=== PATIENT | male | born 1945 | race Caucasian/White ===

== ENCOUNTER 2024-01-15 06:16 | Day surgery (SDC) | payer MEDICARE, OTHER, SELFPAY ==
[2024-01-04 13:29] VITALS: BMI 31.7
[2024-01-15] VITALS (8 sets, daily range): BP systolic 118–146; BP diastolic 60–73; BMI 31.7
[2024-01-15] MEDS: NORMOSOL-R 1000 IV (08:03)
[2024-01-15] MEDS: TYLENOL 1000 MG PO (08:03)
== END 2024-01-15 14:09 | disposition home or self-care (01) ==
LOC: SDS 06:16
PROVIDERS: ATTENDING PHYSICIAN Surgery; FAMILY PHYSICIAN Family Medicine
DX: K40.21 Bilateral inguinal hernia, without obstruction or gangrene, recurrent (principal)
CPT/HCPCS: 49520; C1781

== ENCOUNTER → 2024-04-04 09:15 | Outpatient (REF) | payer MEDICARE, OTHER, SELFPAY ==
[2024-04-04 09:59] LABS: % Basophils 1.4 % (0-2); % Eosinophils 3.9 % (0-6); % Lymphocytes 38.5 % (20.5-51.1); % Monocytes 12.8 % (1.7-9.3); % Neutrophils 43.4 % (42.2-75.2); Absolute Basophils 0.1 10^3/uL (0-0.2); Absolute Eosinophils 0.1 10^3/uL (0-0.7); Absolute Lymphocytes 1.4 10^3/uL (1.2-3.4); Absolute Monocytes 0.5 10^3/uL (0.1-0.6); Absolute Neutrophils 1.6 10^3/uL (1.4-6.5); Hematocrit 39.3 % (39.0-52.0); Hemoglobin 13.3 g/dL (13.0-18.0); Mean Corp Hgb Conc. 33.8 g/dL (33.0-37.0); Mean Corpuscular Hgb 30.6 pg (27.0-31.0); Mean Corpuscular Volume 90.6 fL (80.0-94.0); Mean Platelet Volume 10.7 fL (7.4-10.4); Nucleated Red Blood Cells % 0 % (-); Platelet Count 205 10^3/uL (130-400); Red Blood Cell Count 4.34 10^6/uL (4.70-6.10); Red Cell Dist. Width 12.7 % (11.5-14.5); White Blood Cell Count 3.6 10^3/uL (4.8-10.8)
[2024-04-04 10:21] LABS: ALT (SGPT) 22 U/L (0-50); AST (SGOT) 25 U/L (17-59); Albumin 4.2 g/dl (3.5-5.0); Alkaline Phosphatase 64 U/L (38-126); Blood Urea Nitrogen 25 mg/dl (9-20); Calcium 9.4 mg/dl (8.4-10.2); Carbon Dioxide 26 mmol/L (22-30); Chloride 107 mmol/L (98-107); Glucose 98 mg/dl (70-99); Potassium 4.3 mmol/L (3.5-5.1); Sodium 139 mmol/L (135-145); Total Bilirubin 0.7 mg/dl (0.2-1.3); Total Protein 7.1 g/dl (6.3-8.2); eGFR > 60.00
[2024-04-04 10:32] LABS: C-Reactive Protein < 5.00 mg/L (0.0-10.00); Erythrocyte Sed Rate 15 mm/hour (0-20)
== END ==
LOC: REG 09:15
PROVIDERS: ATTENDING PHYSICIAN Internal Medicine Rheumatology; FAMILY PHYSICIAN Family Medicine
DX: M06.00 Rheumatoid arthritis without rheumatoid factor, unspecified site (principal); M06.4 Inflammatory polyarthropathy; Z51.81 Encounter for therapeutic drug level monitoring
CPT/HCPCS: 36415; 80053; 85025; 85652; 86140

== ENCOUNTER → 2024-07-21 16:12 | Outpatient (REF) | payer MEDICARE, OTHER, SELFPAY ==
[2024-07-21 17:15] LABS: Urine Albumin Negative (Neg - Trace); Urine Bilirubin Negative (Negative); Urine Character Clear (Clear); Urine Color Yellow; Urine Glucose Negative (Negative); Urine Ketone Negative (Negative); Urine Leukocyte Negative (Negative); Urine Nitrite Negative (Negative); Urine Occult Blood Negative (Negative); Urine Urobilinogen Negative (Neg - 1+)
== END ==
LOC: CLAB 16:12
PROVIDERS: ATTENDING PHYSICIAN Specialist
DX: N39.0 Urinary tract infection, site not specified (principal)
CPT/HCPCS: 81003; 87086

== ENCOUNTER → 2024-08-11 10:54 | Outpatient (REF) | payer MEDICARE, OTHER, SELFPAY ==
[2024-08-11 12:52] LABS: Blood Urea Nitrogen 28 mg/dl (9-20)
== END ==
LOC: REG 10:54
PROVIDERS: ATTENDING PHYSICIAN Surgery; FAMILY PHYSICIAN Family Medicine
DX: R10.84 Generalized abdominal pain (principal); M62.08 Separation of muscle (nontraumatic), other site; Z01.812 Encounter for preprocedural laboratory examination
CPT/HCPCS: 36415; 82565; 84520

== ENCOUNTER → 2024-08-17 14:22 | Outpatient (REF) | payer MEDICARE, OTHER, SELFPAY | LOC: RAD 14:22 | PROVIDERS: ATTENDING PHYSICIAN Surgery; FAMILY PHYSICIAN Family Medicine | DX: R10.84 Generalized abdominal pain (principal); M62.08 Separation of muscle (nontraumatic), other site | CPT/HCPCS: 74177; Q9967 ==

== ENCOUNTER → 2024-10-03 08:09 | Outpatient (REF) | payer MEDICARE, OTHER, SELFPAY ==
[2024-10-03 10:03] LABS: % Basophils 1.4 % (0-2); % Eosinophils 7.8 % (0-6); % Lymphocytes 43.1 % (20.5-51.1); % Neutrophils 35.7 % (42.2-75.2); Absolute Basophils 0.1 10^3/uL (0-0.2); Absolute Eosinophils 0.3 10^3/uL (0-0.7); Absolute Lymphocytes 1.5 10^3/uL (1.2-3.4); Absolute Monocytes 0.4 10^3/uL (0.1-0.6); Absolute Neutrophils 1.3 10^3/uL (1.4-6.5); Hematocrit 37.8 % (39.0-52.0); Hemoglobin 12.6 g/dL (13.0-18.0); Mean Corp Hgb Conc. 33.3 g/dL (33.0-37.0); Mean Platelet Volume 10.8 fL (7.4-10.4); Nucleated Red Blood Cells % 0 % (-); Platelet Count 203 10^3/uL (130-400); White Blood Cell Count 3.6 10^3/uL (4.8-10.8)
[2024-10-03 10:50] LABS: C-Reactive Protein < 5.00 mg/L (0.0-10.00)
[2024-10-03 10:54] LABS: ALT (SGPT) 22 U/L (0-50); AST (SGOT) 21 U/L (17-59); Albumin 4.3 g/dl (3.5-5.0); Alkaline Phosphatase 45 U/L (38-126); Blood Urea Nitrogen 28 mg/dl (9-20); Calcium 9.2 mg/dl (8.4-10.2); Carbon Dioxide 29 mmol/L (22-30); Chloride 104 mmol/L (98-107); Glucose 100 mg/dl (70-99); Potassium 4.9 mmol/L (3.5-5.1); Sodium 143 mmol/L (135-145); Total Bilirubin 0.6 mg/dl (0.2-1.3); eGFR > 60.00
[2024-10-03 11:05] LABS: Erythrocyte Sed Rate 15 mm/hour (0-20)
== END ==
LOC: REG 08:09
PROVIDERS: ATTENDING PHYSICIAN Internal Medicine Rheumatology; FAMILY PHYSICIAN Family Medicine
DX: M06.00 Rheumatoid arthritis without rheumatoid factor, unspecified site (principal); M06.4 Inflammatory polyarthropathy; M51.360 Other intervertebral disc degeneration, lumbar region with discogenic back pain only; M54.2 Cervicalgia; Z51.81 Encounter for therapeutic drug level monitoring
CPT/HCPCS: 36415; 80053; 85025; 85652; 86140

== ENCOUNTER → 2024-11-29 09:00 | Day surgery (SDC) | payer MEDICARE, OTHER, SELFPAY | LOC: SDSPAT 09:00 | PROVIDERS: ATTENDING PHYSICIAN Specialist; FAMILY PHYSICIAN Family Medicine | DX: Z01.810 Encounter for preprocedural cardiovascular examination (principal); Z01.812 Encounter for preprocedural laboratory examination | CPT/HCPCS: 93005; 36415 ==

== ENCOUNTER 2024-12-13 06:50 | Day surgery (SDC) | payer MEDICARE, OTHER, SELFPAY ==
[2024-11-29 12:20] VITALS: BMI 30.4
[2024-12-13] VITALS (11 sets, daily range): BP systolic 111–146; BP diastolic 61–71; BMI 30.4
[2024-12-13] MEDS: NORMOSOL-R/PLASMALYTE-A 1000 IV (08:20)
[2024-12-13] MEDS: DETROL LA 4 MG PO (10:50)
[2024-12-13] MEDS: MORPHINE SULFATE 1 MG IV (11:17)
--- NOTE | 2024-12-13 12:20 | PTCARENOTE ---
Received from PACU into room 2108. AOx3, VSS. CBI running, urine blood tinged, free of clots. Discussed plan of care. Encouraged patient to make needs known.
[2024-12-13] MEDS: LEVAQUIN 100 IV (12:46)
[2024-12-13] MEDS: COLACE 100 MG PO ×2 (12:46→16:56)
--- NOTE | 2024-12-13 12:47 | W.PN.URO.CBU ---
Today's Communication / Plan
-
try and wean off cboi tofday by am if no majopr clots / bleeding
Assessment / Plan
-
stable post op turp wvalery try and wean cbi today reevaliaute in am
Diagnosis
-
Date of Service: December 13, 2024
-
Patient Diagnosis:bph
Post Op Day:0 post op check
Subjective
-
min hematuri afeels like has to void
Objective
-
Vital Signs
Temp Pulse Resp BP Pulse Ox
97.4 F 78 16 116/70 95
12/13/24 12:40 12/13/24 12:40 12/13/24 12:40 12/13/24 12:40 12/13/24 12:40
Intake and Output
12/12/24 12/13/24 12/14/24
06:59 06:59 06:59
Intake Total 100 / 100
Output Total 0 / 0
Balance 100 / 100
Intake:
IV fluids (Total) 100 / 100
Normosol 100 / 100
Output:
True Urine Output from CBI 0 / 0
Review of Systems
-
: Difficulty Voiding
Physical Exam
-
General - well developed, well nourished, no acute distress
Chest - clear bilaterally
Abdomen - soft, non-tender, positive bowel sounds, no CVAT, no incisional pain or distention
Genitalia - normal
Rectal - normal
Skin - warm & dry with no rash
Neuro - AOx3, no motor deficits
Extremities - no clubbing, no cyanosis, no edema
Incision - clean, dry
Dressing - clean, dry, intact
[2024-12-13] MEDS: LR 1000 IV (12:48)
[2024-12-13] MEDS: PROSCAR 5 MG PO (16:56)
[2024-12-13] MEDS: FLOMAX 0.4 MG PO (16:56)
[2024-12-13] MEDS: METAMUCIL, KONSYL 1 PACKET PO (21:15)
[2024-12-14] MEDS: LR 1000 IV ×2 (01:35→16:46)
[2024-12-14 03:02] VITALS: BP 119/59
[2024-12-14] MEDS: COLACE 100 MG PO ×3 (06:22→16:44)
[2024-12-14 06:35] LABS: Hematocrit 35.7 % (39.0-52.0); Hemoglobin 12.1 g/dL (13.0-18.0)
[2024-12-14 06:58] VITALS: BP 112/61
[2024-12-14] MEDS: CELEBREX 200 MG PO (08:17)
[2024-12-14] MEDS: CARDIZEM CD 120 MG PO (08:18)
[2024-12-14] MEDS: THERAGRAN 1 TABLET PO (08:20)
[2024-12-14] MEDS: ORETIC 12.5 MG PO (08:20)
[2024-12-14] MEDS: METAMUCIL, KONSYL 1 PACKET PO ×2 (08:21→20:52)
[2024-12-14 11:19] VITALS: BP 135/70
[2024-12-14] MEDS: LEVAQUIN 100 IV (12:40)
--- NOTE | 2024-12-14 12:42 | W.PN.URO.CBU ---
Today's Communication / Plan
-
eugenio and wean cbi no iv encourage alfred and encourage ambulation
Assessment / Plan
-
stable post op turp wjill try and wean cbi today reevaliaute in am fkeep wall try and wean cbi and wall out am
Diagnosis
-
Date of Service: December 14, 2024
-
Patient Diagnosis:
Post Op Day:
Patient Diagnosis:bph
Post Op Day:0 post op check
Subjective
-
feels e=well
Objective
-
Vital Signs
Temp Pulse Resp BP Pulse Ox
98.0 F 73 18 135/70 97
12/14/24 11:19 12/14/24 11:19 12/14/24 11:19 12/14/24 11:19 12/14/24 11:19
Intake and Output
12/13/24 12/14/24 12/15/24
06:59 06:59 06:59
Intake Total 1540 / 1540
Output Total 8500 / 8500
Balance -6960 / -6960
Intake:
Oral fluids 1440 / 1440
IV fluids (Total) 100 / 100
Normosol 100 / 100
Output:
Urine, Wall 6500 / 6500
True Urine Output from CBI 1999
Laboratory Results
12/14/24 04:41
Review of Systems
-
: Bleeding
Physical Exam
-
General - well developed, well nourished, no acute distress
Chest - clear bilaterally
Abdomen - soft, non-tender, positive bowel sounds, no CVAT, no incisional pain or distention
Genitalia - normal
Rectal - normal
Skin - warm & dry with no rash
Neuro - AOx3, no motor deficits
Extremities - no clubbing, no cyanosis, no edema
Incision - clean, dry
Dressing - clean, dry, intact
Care Review
Data Reviewed
Discussed with: Nursing
[2024-12-14] MEDS: OCEAN, SALINE MIST 1 SPRAYS NASAL (13:34)
--- NOTE | 2024-12-14 14:45 | CM ---
Met with pt at bedside
Pt reports he lives with his daughter in a 2 story home; 2 steps to enter, FF set up
Independent at baseline, retired, drives
DME - crutches
SNF/HH - denies past hx
Has ride at discharge
PCP - [place]
Pharm - [facility]
Plan - anticipate home no needs when medically stable
[2024-12-14 15:24] VITALS: BP 122/61
[2024-12-14] MEDS: FLOMAX 0.4 MG PO (16:45)
[2024-12-14] MEDS: PROSCAR 5 MG PO (16:45)
--- NOTE | 2024-12-14 18:27 | PTCARENOTE ---
assumed care of pt this am @[address]. [address] Barcenas catheter patent w/CBI infusing at slow rate. output is light pink no clots noted. CBI weaned down to stop at 1300. urine observed -no clots noted. output is light pink-yellow. no penile
discharge-no bleeding.
[2024-12-14 22:32] VITALS: BP 127/69
[2024-12-15 07:20] VITALS: BP 133/67
[2024-12-15] MEDS: COLACE 100 MG PO ×2 (09:05→11:01)
[2024-12-15] MEDS: ORETIC 12.5 MG PO (09:07)
[2024-12-15] MEDS: CARDIZEM CD 120 MG PO (09:08)
[2024-12-15] MEDS: THERAGRAN 1 TABLET PO (09:10)
[2024-12-15] MEDS: CELEBREX 200 MG PO (09:10)
[2024-12-15] MEDS: METAMUCIL, KONSYL 1 PACKET PO (09:11)
--- NOTE | 2024-12-15 09:11 | W.PN.URO.CBU ---
Today's Communication / Plan
-
d/c
Assessment / Plan
-
stable post op turp home
Diagnosis
-
Date of Service: December 15, 2024
-
Patient Diagnosis:
Post Op Day:
Patient Diagnosis:
Post Op Day:
Patient Diagnosis:bph
Post Op Day:0 post op check
Subjective
-
voiding
Objective
-
Vital Signs
Temp Pulse Resp BP Pulse Ox
97.7 F 50 16 133/67 96
12/15/24 07:20 12/15/24 07:20 12/15/24 07:20 12/15/24 07:20 12/15/24 07:20
Intake and Output
12/14/24 12/15/24 12/16/24
06:59 06:59 06:59
Intake Total 1540 / 1540 2305 / 2305
Output Total 8500 / 8500 3800 / 3800
Balance -6960 / -6960 -1495 / -1495
Intake:
Oral fluids 1440 / 1440 480 / 480
IV fluids (Total) 100 / 100 1725 / 1725
Normosol 100 / 100
IV piggybacks 100 / 100
Output:
Urine, Barcenas 6500 / 6500 3800 / 3800
True Urine Output from CBI 1999 / 1999
Laboratory Results
12/14/24 04:41
Review of Systems
-
: No Symptoms
Physical Exam
-
General - well developed, well nourished, no acute distress
Chest - clear bilaterally
Abdomen - soft, non-tender, positive bowel sounds, no CVAT, no incisional pain or distention
Genitalia - normal
Rectal - normal
Skin - warm & dry with no rash
Neuro - AOx3, no motor deficits
Extremities - no clubbing, no cyanosis, no edema
Incision - clean, dry
Dressing - clean, dry, intact
Care Review
Data Reviewed
Discussed with: Nursing
--- NOTE | 2024-12-15 09:12 | W.DCSUMMARY ---
Discharge Summary
Discharge Data
Date of Admission: 12/13/24
Date of Discharge: 12/15/24
Total time spent discharging patient (in min): 35
-
Pending Results: Yes (path report)
Hospital Course
had turp 12/13 stable wall out today and voiding home on bactrim
Discharge Plan
-
Patient Disposition: Home (Routine Discharge)
Discharge Diagnosis/Procedures: bph
Condition: Good
Diet: As tolerated
Activity: No restrictions
Driving Restrictions: As prior to admission
Bathing Restrictions: None
Referrals:
[place] MD [Family Provider] -
Duke Jimenez MD [Active] - (call dr jimenez if questions Expect blood in urne for 2- 3 weeks make routine post op appt 6 weeks)
Abner Boyd MD [Active] - (If you would like to discuss repairing your hernia, please call my office to make an appt. )
Prescriptions:
Continued
multivitamin Tablet
1 tab PO DAILY
celecoxib [Celebrex] 200 mg Capsule
200 mg PO DAILY
tamsulosin 0.4 mg Capsule
0.4 mg PO QPM
diltiazem HCl 120 mg Capsule,Extended Release 24 Hr
120 mg PO DAILY
finasteride 5 mg Tablet
5 mg PO QPM
Simponi ARIA 12.5 mg/mL Solution
50 mg IV Q8W
aspirin 81 mg Capsule
81 mg PO DAILY
acetaminophen 650 mg Tablet Extended Release
1,300 mg PO Q12H
glucosamine-chondroitin [Osteo Bi-Flex] 250-200 mg Tablet
1 tab PO DAILY
hydrochlorothiazide 12.5 mg Tablet
12.5 mg PO DAILY
coQ10 (ubiquinol) 200 mg Capsule
200 mg PO DAILY
psyllium husk [Metamucil] 0.4 gram Capsule
0.8 g PO BID
Airborne (ascorbic acid) 250-8.875 mg Tablet,Chewable
2 tab PO DAILY
Neuriva Plus 0.85 mg-200 mcg-1.2 mcg Tablet,Chewable
1 tab PO DAILY
Super Beta Prostate
1 tab PO BID
turmeric root-michele root ext
2 tab PO DAILY
Discharge Date and Time
Print Language: UPPER SORBIAN
[2024-12-15] MEDS: LEVAQUIN 100 IV (11:01)
--- NOTE | 2024-12-15 11:08 | CM ---
Chart reviewed. Met with pt at bedside
Pt for discharge today
Has ride when discharged
Plan - anticipate home no needs
[2024-12-15 12:03] VITALS: BP 120/69
== END 2024-12-15 13:29 | disposition home or self-care (01) ==
LOC: SDS 06:50
PROVIDERS: ATTENDING PHYSICIAN Specialist; FAMILY PHYSICIAN Family Medicine
DX: N40.1 Benign prostatic hyperplasia with lower urinary tract symptoms (principal); N13.8 Other obstructive and reflux uropathy; R33.8 Other retention of urine; R39.14 Feeling of incomplete bladder emptying; R39.15 Urgency of urination; R39.12 Poor urinary stream; R35.0 Frequency of micturition
CPT/HCPCS: 52601; 88305; 85014; 85018; 88344

== ENCOUNTER → 2025-01-26 08:25 | Outpatient (REF) | payer MEDICARE, OTHER, SELFPAY ==
[2025-01-26 09:36] LABS: % Basophils 1.5 % (0-2); % Eosinophils 8.2 % (0-6); % Lymphocytes 40.6 % (20.5-51.1); % Neutrophils 38.7 % (42.2-75.2); Absolute Basophils 0.1 10^3/uL (0-0.2); Absolute Eosinophils 0.3 10^3/uL (0-0.7); Absolute Lymphocytes 1.6 10^3/uL (1.2-3.4); Absolute Monocytes 0.4 10^3/uL (0.1-0.6); Absolute Neutrophils 1.5 10^3/uL (1.4-6.5); Hematocrit 39.6 % (39.0-52.0); Mean Corp Hgb Conc. 32.8 g/dL (33.0-37.0); Mean Corpuscular Hgb 30.4 pg (27.0-31.0); Mean Corpuscular Volume 92.5 fL (80.0-94.0); Mean Platelet Volume 10.6 fL (7.4-10.4); Nucleated Red Blood Cells % 0 % (-); Platelet Count 218 10^3/uL (130-400); Red Blood Cell Count 4.28 10^6/uL (4.70-6.10); Red Cell Dist. Width 13.2 % (11.5-14.5); White Blood Cell Count 3.9 10^3/uL (4.8-10.8)
[2025-01-26 10:33] LABS: ALT (SGPT) 17 U/L (0-50); AST (SGOT) 19 U/L (17-59); Albumin 4.2 g/dl (3.5-5.0); Alkaline Phosphatase 62 U/L (38-126); Blood Urea Nitrogen 22 mg/dl (9-20); Calcium 9.6 mg/dl (8.4-10.2); Carbon Dioxide 28 mmol/L (22-30); Chloride 103 mmol/L (98-107); Glucose 100 mg/dl (70-99); Potassium 4.3 mmol/L (3.5-5.1); Sodium 140 mmol/L (135-145); Total Bilirubin 0.7 mg/dl (0.2-1.3); Total Protein 7.3 g/dl (6.3-8.2); eGFR > 60.00
== END ==
LOC: RCS 08:25
PROVIDERS: ATTENDING PHYSICIAN Surgery Plastic and Reconstructive Surgery; FAMILY PHYSICIAN Family Medicine
DX: Z01.818 Encounter for other preprocedural examination (principal)
CPT/HCPCS: 36415; 80053; 85025; 93005

== ENCOUNTER → 2025-02-02 07:30 | Outpatient (REF) | payer MEDICARE, OTHER, SELFPAY | LOC: RAD 07:30 | PROVIDERS: ATTENDING PHYSICIAN Surgery Plastic and Reconstructive Surgery; FAMILY PHYSICIAN Family Medicine | DX: K43.9 Ventral hernia without obstruction or gangrene (principal) | CPT/HCPCS: 74177; Q9967 ==

== ENCOUNTER → 2025-04-03 08:29 | Outpatient (REF) | payer MEDICARE, OTHER, SELFPAY ==
[2025-04-03 09:50] LABS: % Basophils 1.6 % (0-2); % Eosinophils 5.6 % (0-6); % Lymphocytes 41.9 % (20.5-51.1); % Monocytes 10.3 % (1.7-9.3); % Neutrophils 40.6 % (42.2-75.2); Absolute Basophils 0.1 10^3/uL (0-0.2); Absolute Eosinophils 0.2 10^3/uL (0-0.7); Absolute Lymphocytes 1.3 10^3/uL (1.2-3.4); Absolute Monocytes 0.3 10^3/uL (0.1-0.6); Absolute Neutrophils 1.3 10^3/uL (1.4-6.5); Hematocrit 41.8 % (39.0-52.0); Hemoglobin 13.6 g/dL (13.0-18.0); Mean Corp Hgb Conc. 32.5 g/dL (33.0-37.0); Mean Corpuscular Volume 92.3 fL (80.0-94.0); Nucleated Red Blood Cells % 0 % (-); Platelet Count 192 10^3/uL (130-400); Red Blood Cell Count 4.53 10^6/uL (4.70-6.10); Red Cell Dist. Width 13.3 % (11.5-14.5); White Blood Cell Count 3.2 10^3/uL (4.8-10.8)
[2025-04-03 10:06] LABS: ALT (SGPT) 19 U/L (0-50); AST (SGOT) 19 U/L (17-59); Albumin 4.4 g/dl (3.5-5.0); Alkaline Phosphatase 48 U/L (38-126); Blood Urea Nitrogen 23 mg/dl (9-20); Calcium 9.2 mg/dl (8.4-10.2); Carbon Dioxide 27 mmol/L (22-30); Chloride 106 mmol/L (98-107); Erythrocyte Sed Rate 3 mm/hour (0-20); Glucose 103 mg/dl (70-99); Potassium 4.4 mmol/L (3.5-5.1); Sodium 142 mmol/L (135-145); Total Bilirubin 0.8 mg/dl (0.2-1.3); Total Protein 7.2 g/dl (6.3-8.2); eGFR > 60.00
[2025-04-03 10:07] LABS: C-Reactive Protein < 5.00 mg/L (0.0-10.00)
== END ==
LOC: REG 08:29
PROVIDERS: ATTENDING PHYSICIAN Internal Medicine Rheumatology; FAMILY PHYSICIAN Family Medicine
DX: M06.00 Rheumatoid arthritis without rheumatoid factor, unspecified site (principal); Z51.81 Encounter for therapeutic drug level monitoring; D72.819 Decreased white blood cell count, unspecified; M54.2 Cervicalgia
CPT/HCPCS: 36415; 80053; 85025; 85652; 86140

== ENCOUNTER → 2025-05-03 08:27 | Outpatient (REF) | payer MEDICARE, OTHER, SELFPAY ==
[2025-05-03 10:00] LABS: Glycohemoglobin (HgbA1c) 5.6 % (4.0-5.6)
[2025-05-03 11:03] LABS: HDL Cholesterol 67 mg/dl; LDL Cholesterol, Calculated 103 mg/dl; Total Cholesterol 187 mg/dl (50-199); Triglyceride 87 mg/dl (10-149); Very Low Density Lipoprotein 17 mg/dl (0-30)
== END ==
LOC: REG 08:27
PROVIDERS: ATTENDING PHYSICIAN Internal Medicine; FAMILY PHYSICIAN Family Medicine
DX: E78.2 Mixed hyperlipidemia (principal); R73.09 Other abnormal glucose
CPT/HCPCS: 36415; 80061; 83036

== ENCOUNTER → 2025-10-05 07:32 | Outpatient (REF) | payer MEDICARE, OTHER, SELFPAY ==
[2025-10-05 08:51] LABS: Hematocrit 39.7 % (39.0-52.0); Hemoglobin 13.1 g/dL (13.0-18.0); Mean Corp Hgb Conc. 33.0 g/dL (33.0-37.0); Mean Corpuscular Volume 91.9 fL (80.0-94.0); Nucleated Red Blood Cells % 0 % (-); Platelet Count 210 10^3/uL (130-400); Red Cell Dist. Width 13.1 % (11.5-14.5)
[2025-10-05 11:09] LABS: ALT (SGPT) 20 U/L (0-50); AST (SGOT) 20 U/L (17-59); Albumin 4.2 g/dl (3.5-5.0); Alkaline Phosphatase 43 U/L (38-126); Blood Urea Nitrogen 20 mg/dl (9-20); Calcium 9.1 mg/dl (8.4-10.2); Carbon Dioxide 28 mmol/L (22-30); Chloride 105 mmol/L (98-107); Glucose 97 mg/dl (70-99); Potassium 4.5 mmol/L (3.5-5.1); Sodium 138 mmol/L (135-145); Total Protein 7.2 g/dl (6.3-8.2); eGFR > 60.00
[2025-10-05 12:03] LABS: C-Reactive Protein < 5.00 mg/L (0.0-10.00)
== END ==
LOC: REG 07:32
PROVIDERS: ATTENDING PHYSICIAN Internal Medicine Rheumatology; FAMILY PHYSICIAN Family Medicine
DX: M06.00 Rheumatoid arthritis without rheumatoid factor, unspecified site (principal)
CPT/HCPCS: 36415; 80053; 85025; 85652; 86140

== ENCOUNTER → 2025-10-25 12:50 | Outpatient (REF) | payer MEDICARE, OTHER, SELFPAY | LOC: RAD 12:50 | PROVIDERS: ATTENDING PHYSICIAN Surgery Plastic and Reconstructive Surgery; FAMILY PHYSICIAN Family Medicine | DX: K43.9 Ventral hernia without obstruction or gangrene (principal) | CPT/HCPCS: 74177; Q9967 ==